=== PATIENT | female | born 1975 | race African-American/Black ===

== ENCOUNTER 2016-06-07 22:33 | Inpatient (IN) | payer OTHER ==
[2016-06-07] MEDS ORDERED: TYLENOL PO ONE (23:07)
[2016-06-07] MEDS ORDERED: TYLENOL ONE (23:08)
[2016-06-07 23:45] LABS: BASO% 0.1 % (0.0-0.8); HEMOGLOBIN 13.6 g/dL (12.0-16.0); IMM GRAN# 0.06 X1000 (0.0-0.04); IMM GRAN% 0.4 % (0.0-0.5); LYMPH# 0.72 X1000 (1.2-3.4); LYMPH% 4.3 % (20.5-51.1); MANUAL DIFF NEEDED? YES; MCV 91.1 FL (81-99); MONO# 0.56 X1000 (0.11-0.59); MONO% 3.3 % (1.7-9.3); MPV 10.9 FL (7.4-10.4); NEUT% 91.9 % (42.2-75.2); PLT 239 X1000 (130-400); RBC 4.39 XMIL (4.2-5.4)
[2016-06-07 23:59] LABS: AGAP 13; ALBUMIN 3.9 g/dL (3.5-5.0); ALKALINE PHOSPHATASE 65 U/L (32-104); BUN 14 mg/dL (8-22); CALCIUM 9.1 mg/dL (8.8-10.2); CHLORIDE 99 mmol/L (98-107); COSMO 268; GOT 12 U/L (10-30); GPT 11 U/L (10-36); POTASSIUM 3.5 mmol/L (3.5-5.1); SODIUM 133 mmol/L (136-145); TCO2 22 mmol/L (25-35); TOTAL PROTEIN 7.1 g/dL (6.3-8.3)
[2016-06-08 00:04] LABS: BANDS 10 % (0-1)
[2016-06-08 00:05] LABS: LYMPHS 5 % (21-51); MONO 1 % (1-9); STOMATOCYTES 1+
--- NOTE | 2016-06-08 00:23 | PROVIDER DOCUMENTATION ---
HPI-Musculoskeletal Pain/Inj - GENERAL Chief Complaint: Extremity Pain Stated Complaint: FEVER,SWOLLEN LEGS Time Seen by Provider: 06/08/16 00:18 Source: patient, family - HX OF PRESENT ILLNESS-MUSKULOSKELTAL Nature of Presenting Problem: 40 Y/O F presents to ED with Extremity pain. Pt states that she's been suffering from edema since she was 13 years old. Pt states the swelling began about 3pm today. Extreme pedal edema in both legs, with inflammation. Quality of Pain: reports: aching, pressure Severity in ED: severe Onset/Duration: this afternoon Timing: still present - LOWER EXTREMITY PAIN/INJURY Lower Extremities Pain: leg: bilateral Context / Method of Injury: reports: other Associated Symptoms: reports: other (swelling) Review of Systems - Adult - REVIEW OF SYSTEMS - ADULT Constitutional: reports: fever. denies: chills Eyes: reports: no symptoms reported Ears, Nose, Mouth & Throat: reports: no symptoms reported Cardiovascular: reports: no symptoms reported Respiratory: reports: no symptoms reported Gastrointestinal: denies: abdominal pain, diarrhea, nausea, vomiting Genitourinary: reports: no symptoms reported Musculoskeletal: reports: joint swelling Integumentary: reports: no symptoms reported Neurological: reports: no symptoms reported Psychiatric: reports: no symptoms reported Endocrine: reports: no symptoms reported Hematologic/Lymphatic: reports: no symptoms reported Allergic/Immunologic: reports: no symptoms reported All Other Systems: Reviewed and Negative Past History - Adult - PAST MEDICAL HISTORY-ADULT Review of Records: reports: Old Records Reviewed, Nursing Assessment Review, Medications Reviewed, Social history reviewed & non-contributory. - PRIOR SURGERIES/PROCEDURES Surgical/Procedure History: reports: hysterectomy - IMMUNIZATION STATUS Childhood Immunizations: See Nurse Assessment Flu Vaccine: See Nurse Assessment - SOCIAL HISTORY Smoking: non-smoker Substance Use: none/never Alcohol Use Frequency: never Living Situation: family Physical Exam-Injury Related - Physical Exam-Injury Related General Appearance: appears well, alert, mild distress Eyes: PERRL/EOMI, pink conjunctivae, fundi clear, no AV nicking Head, Ears, Nose, Mouth & Throat: normocephalic/atraumatic, moist mucous membranes, normal ENT inspection, TMs normal Neck: non-tender, supple, normal inspection Respiratory: chest non-tender, lungs clear, normal breath sounds Cardiovascular: normal peripheral pulses, regular rate, rhythm Abdominal Exam: normal bowel sounds, non tender, soft Lymphatic: no adenopathy Back Exam: normal inspection, no CVA tenderness, no vertebral tenderness Extremity: inflammation, pedal edema, swelling, tenderness Integumentary: normal color, warm/dry 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 Psych/Mental Status: normal mood/affect, normal thought content, normal thought process, oriented x 3 - Glascow Coma Score Best Eye Response ([place]): (4) open spontaneously Best Verbal Response ([place]): (5) oriented Best Motor Response ([place]): (6) obeys commands [place] Total: 15 Progress - PLAN OF CARE/RESULTS Progress/Plan/Lab Results: Laboratory Tests 06/07/16 06/07/16 06/07/16 23:05 23:30 23:30 WBC 16.94 H RBC 4.39 Hgb 13.6 Hct 40.0 MCV 91.1 MCH 31.0 MCHC 34.0 RDW Std Deviation 11.6 Plt Count 239 MPV 10.9 H Immature Gran % (Auto) 0.4 Neut % (Auto) 91.9 H Lymph % (Auto) 4.3 L [place] % (Auto) 3.3 Eos % (Auto) 0.0 Baso % (Auto) 0.1 Immature Gran # (Auto) 0.06 H Neut # (Auto) 15.59 H Lymph # (Auto) 0.72 L [place] # (Auto) 0.56 Eos # (Auto) 0.00 Baso # (Auto) 0.01 Segmented Neutrophils 84 H Band Neutrophils 10 H Lymphocytes 5 L Monocytes 1 Stomatocytes 1+ Sodium 133 L Potassium 3.5 Chloride 99 Carbon Dioxide 22 L Anion Gap 13 BUN 14 Creatinine 0.7 Estimated GFR/1.73 m2 > 60 BUN/Creatinine Ratio 20 Glucose 118 H Calculated Osmolality 268 Calcium 9.1 Total Bilirubin 1.30 H AST 12 ALT 11 Alkaline Phosphatase 65 Total Protein 7.1 Albumin 3.9 Globulin 3.0 Albumin/Globulin Ratio 1.0 Plasma Lactate Influenza A (Rapid) NEGATIVE Influenza B (Rapid) NEGATIVE 06/07/16 23:30 WBC RBC Hgb Hct MCV MCH MCHC RDW Std Deviation Plt Count MPV Immature Gran % (Auto) Neut % (Auto) Lymph % (Auto) [place] % (Auto) Eos % (Auto) Baso % (Auto) Immature Gran # (Auto) Neut # (Auto) Lymph # (Auto) [place] # (Auto) Eos # (Auto) Baso # (Auto) Segmented Neutrophils Band Neutrophils Lymphocytes Monocytes Stomatocytes Sodium Potassium Chloride Carbon Dioxide Anion Gap BUN Creatinine Estimated GFR/1.73 m2 BUN/Creatinine Ratio Glucose Calculated Osmolality Calcium Total Bilirubin AST ALT Alkaline Phosphatase Total Protein Albumin Globulin Albumin/Globulin Ratio Plasma Lactate 1.9 Influenza A (Rapid) Influenza B (Rapid) Orders Category Date Time Status Admit - [facility] Routine AdmDCTranf 06/08/16 00:21 Ordered Activity - Bed Rest with BRP ORDERED Care 06/08/16 00:21 Active Vital Signs Order ARRIVAL TO ROOM Care 06/08/16 00:21 Active Vital Signs Order Q 8-HR .ASSESS Care 06/08/16 00:21 Active Heart Healthy Diet Diet 06/08/16 00:22 Active CBC WITH DIFF [HEME] Stat Lab 06/07/16 23:30 Completed COMPREHENSIVE METABOLIC PANEL [CHEM] Stat Lab 06/07/16 23:30 Completed Flu [INFLUENZA SCREEN PL] Stat Lab 06/07/16 23:05 Completed LACTATE, PLASMA [CHEM] Stat Lab 06/07/16 23:30 Completed 0.9% Sodium Chloride Inj [Ns] 1,000 ml Med 06/08/16 00:30 Ordered IV 100 mls/hr Acetaminophen [Tylenol] Med 06/07/16 23:08 Discontinued 650 mg .ROUTE .STK-MED ONE Acetaminophen [Tylenol] Med 06/07/16 23:07 Discontinued 650 mg PO NOW ONE Acetaminophen [Tylenol] Med 06/08/16 00:21 Active 650 mg PO Q6H PRN PRN Acetaminophen with Codeine [Tylenol with Codeine #3] Med 06/08/16 00:25 Active 1 each PO Q8H PRN PRN Clindamycin 900 mg/Ns 50 ml Med 06/08/16 00:30 Ordered IV Q8H Telemetry [OM.EQ] Routine Oth 06/08/16 00:21 Active Transfer/Admit Order [TRANSFER] Routine Transfer 06/08/16 00:23 Ordered Vital Signs - 24 hr 06/07/16 22:52 Temperature 102.5 F H Pulse Rate 118 H Respiratory 16 Rate Blood Pressure 71/51 O2 Sat by Pulse 99 Oximetry - CONSULTS/PCP/HOSPITALIST Notification #1 *Consult/PCP/Hospitalist*: Dr. Cheatem Time Discussed: 00:35 Reason/Comments: Admittance Consult Disposition: Admit (Admit accepted) Departure - Departure Time of Disposition Order: 00:30 DIAGNOSIS: Erysipelas of lower extremity Disposition: ADMITTED INPATIENT 09 Certified Medical Emergency: Emergent Condition: Stable Additional Instructions: ED Follow Up Instructions: You have been treated by a care provider in the Emergency Department. These instructions are being provided to you so you can have an understanding of how to care for yourself upon discharge. Upon discharge from the Emergency Department, you are responsible for making arrangements for follow-up care by a physician of your choice. Take all prescribed medications as directed. Return to the Emergency Department immediately for any new or worsening symptoms. You may call the Physician Referral phone number at [phone] to obtain a list of Physicians who are taking new patients. Referrals: Luis Atkinson MD [Primary Care Provider] - Attestation - Scribe Verification/Attestation Scribe:: Ana Mcconnell Acting as Scribe for:: Gerson Jacobo Scribe documention review:: This chart was documented by a scribe and accurately reflects the service the provider performed and the decisions made by the provider.
[2016-06-08] MEDS ORDERED: TYLENOL WITH CODEINE #3 PO PRN (00:25)
[2016-06-08] MEDS: NS 1,000 ML IV SCH ×4 (00:30→23:43)
[2016-06-08] MEDS: CLINDAMYCIN 900 MG/NS 50 ML IV SCH ×3 (00:48→16:14)
--- NOTE | 2016-06-08 14:10 | HISTORY AND PHYSICAL ---
PRIMARY CARE PHYSICIAN: Dr. Atkinson. CHIEF COMPLAINT: "My lymphedema is acting up." HISTORY OF PRESENTING ILLNESS: This is a 40-year-old female who presented to [facility] with complaints of bilateral lower extremity edema with 10/10 pain. She has had a history of lymphedema since the age of 13. Her last admission here was in October 2014. Her white blood cell count was noted to be 16.94. She was noted to have bilateral lower extremity edema with right greater than left, pain and warmth to right leg greater than left, so she was admitted for further evaluation and treatment. PAST MEDICAL HISTORY: Lymphedema. PAST SURGICAL HISTORY: Hysterectomy and a toe surgery. FAMILY HISTORY: Mother with borderline diabetes and a sister with breast cancer. SOCIAL HISTORY: She lives with family and denies any tobacco, alcohol, or illicit drug use. ALLERGIES: She has no known drug allergies. HOME MEDICATIONS: She does not take any home medications on a routine basis. LABORATORY DATA: White blood cell count of 16.94, hemoglobin 13.6, hematocrit 40, platelets 239,000. Sodium 133, potassium 3.5, chloride 99, CO2 of 22, BUN of 14, creatinine 0.7, glucose 118. Total bilirubin was 1.30. Plasma lactate of 1.9. Influenza A and B were both negative. REVIEW OF SYSTEMS: She denied any fever, chills, blurred vision, or dizziness. She does complain of a headache yesterday but none today. Denied any chest pain, coughing, shortness of breath, abdominal pain, constipation, diarrhea, burning or hurting with urination. She is positive for lower extremity edema with pain with movement that she rates a 10/10 to both legs. PHYSICAL EXAMINATION: VITAL SIGNS: On arrival, she had a temperature of 102.5 degrees, pulse of 118, respirations 16, blood pressure was 71/51, saturating 99% on room air. Currently, her temperature is 99.8 degrees, pulse 104, respirations 20, blood pressure 119/54, saturating 100% on room air. GENERAL: This is a 40-year-old female who is lying in the bed and answers questions appropriately. HEENT: Normocephalic and atraumatic. Pupils are equal, round, and reactive to light. The extraocular movements are intact. The oropharynx and nares are clear. NECK: Supple. LUNGS: Clear to auscultation bilaterally, with equal lung expansion and chest wall movement. HEART: Regular rate and rhythm. No murmurs, rubs, or gallops. ABDOMEN: Soft, nontender, nondistended. Bowel sounds are present x4 quadrants. EXTREMITIES: Patient is noted to have bilateral lower extremity lymphedema with right greater than left, warmth to touch, and pain with movement to both lower extremities. NEUROLOGICAL: The cranial nerves 2-12 are grossly intact. ASSESSMENT: 1. Erysipelas of bilateral lower extremities. 2. Lymphedema. 3. Leukocytosis. 4. Fever. PLAN: She was admitted to the medical unit at [facility], placed on telemetry, Healthy Heart diet. We placed her on clindamycin 900 mg IV q.8 hours, and normal saline at 100 mL an hour. We will give her Demerol 25 mg IV q.4 hours p.r.n. We will recheck a CBC and BMP in the a.m. Dictated by YUMIKO Amaro for Artis Omalley MD agree with above, significant swelling, erythema, of right LE, also significant onychomycosis, will continue' clindamycin, vancomycin if still febrile, unlikely to be dvt, but will check doppler otherwise agree with above AP[place]OT MTDD
[2016-06-08] MEDS ORDERED: ZOFRAN IV PRN (15:23)
[2016-06-08] MEDS: DEMEROL IV PRN (15:40)
[2016-06-08] MEDS: LOVENOX SUBQ SCH (16:14)
[2016-06-08] MEDS: TYLENOL PO PRN ×2 (16:14→22:15)
[2016-06-09] MEDS: CLINDAMYCIN 900 MG/NS 50 ML IV SCH ×3 (01:36→17:21)
[2016-06-09] MEDS: DEMEROL IV PRN ×3 (01:40→21:17)
[2016-06-09] MEDS ORDERED: VANCOMYCIN IV PER PHARMACY MISC SCH (06:15)
[2016-06-09 06:50] LABS: AGAP 12; BUN 7 mg/dL (8-22); CALCIUM 8.3 mg/dL (8.8-10.2); CHLORIDE 101 mmol/L (98-107); COSMO 262; POTASSIUM 3.4 mmol/L (3.5-5.1); SODIUM 131 mmol/L (136-145); TCO2 18 mmol/L (25-35)
[2016-06-09 06:53] LABS: BASO% 0.1 % (0.0-0.8); HEMATOCRIT 37.5 % (37.0-47.0); HEMOGLOBIN 12.7 g/dL (12.0-16.0); IMM GRAN# 0.04 X1000 (0.0-0.04); IMM GRAN% 0.3 % (0.0-0.5); LYMPH% 6.6 % (20.5-51.1); MANUAL DIFF NEEDED? YES; MCH 30.8 PG (27-31); MCHC 33.9 g/dL (33-37); MCV 90.8 FL (81-99); MONO# 0.74 X1000 (0.11-0.59); MONO% 4.9 % (1.7-9.3); MPV 10.7 FL (7.4-10.4); NEUT% 88.1 % (42.2-75.2); PLT 209 X1000 (130-400); RBC 4.13 XMIL (4.2-5.4)
[2016-06-09 07:44] LABS: BANDS 2 % (0-1); LYMPHS 4 % (21-51); MONO 6 % (1-9)
[2016-06-09] MEDS: NS 1,000 ML IV SCH (09:14)
[2016-06-09] MEDS ORDERED: OFIRMEV 1000 MG/ISOTONIC SOLN 100 ML IV ONE (10:04)
[2016-06-09] MEDS: VANCOMYCIN 2,000 MG in NS 500 ML IV SCH ×2 (11:14→19:18)
[2016-06-09] MEDS: LOVENOX SUBQ SCH (16:09)
[2016-06-09] MEDS ORDERED: LASIX IV ONE (18:58)
[2016-06-09] MEDS ORDERED: KLOR-CON PO ONE (18:59)
--- NOTE | 2016-06-09 19:14 | PROGRESS NOTE ---
DATE: 06/09/2016 SUBJECTIVE: The patient has no focal complaints. OBJECTIVE: Blood pressure 117/57, heart rate 105, respiratory rate 20, temperature 99.6 degrees, 102.9 max temp. Cardiovascular: Regular rate and rhythm. Pulmonary: Bilateral breath sounds. Clear to auscultation. GI: Soft, nontender, nondistended. Bowel sounds are positive. Extremities: No clubbing or cyanosis. Lymphatics: No peripheral edema. Neurological: Nonfocal. Her right lower extremity is swollen. She has got ankle edema, some chronic venous stasis issues but significant lymphedema on the right side. Erythema all the way up to her knee. LABORATORY DATA: White count of 15. Chemistries looked okay. Potassium a little low at 3.4. PROBLEM LIST: Cellulitis of her right leg with persistent fevers. We started vancomycin last night or at least it was ordered but I do not think it was started until this morning and I think she may have missed a dose of her clindamycin last night but she had persistent fevers. I am not sure if it is treatment failure at this point or the vancomycin usage at this point. In any case, I feel clinically her erythema is somewhat improved. We are going to stop her fluids, start Lasix. We ruled out a DVT which is unlikely with a temperature of 102 and we will follow closely.
[2016-06-10] MEDS: DEMEROL IV PRN ×3 (00:38→20:33)
[2016-06-10] MEDS: CLINDAMYCIN 900 MG/NS 50 ML IV SCH ×3 (02:21→17:55)
[2016-06-10 06:10] LABS: HEMATOCRIT 37.1 % (37.0-47.0); HEMOGLOBIN 12.7 g/dL (12.0-16.0); MCH 30.8 PG (27-31); MCHC 34.2 g/dL (33-37); MPV 10.8 FL (7.4-10.4); RBC 4.12 XMIL (4.2-5.4)
[2016-06-10 06:40] LABS: AGAP 11; BUN 7 mg/dL (8-22); CALCIUM 8.6 mg/dL (8.8-10.2); CHLORIDE 105 mmol/L (98-107); COSMO 270; POTASSIUM 3.6 mmol/L (3.5-5.1); SODIUM 136 mmol/L (136-145); TCO2 20 mmol/L (25-35)
--- NOTE | 2016-06-10 07:13 | Extremity Venous Study ---
PROCEDURE NAME: Venous U/S Right Leg - 06/09/2016 VENOUS ULTRASOUND OF THE RIGHT LOWER EXTREMITY: FINDINGS: The deep veins are compressible and demonstrate normal color Doppler flow. There is some soft tissue hyperemia in the calf. The possibility of inflammation is suggested. There are fatty replaced lymph nodes in the right inguinal region. IMPRESSION: No evidence of deep venous thrombosis.
[2016-06-10] MEDS: VANCOMYCIN 2,000 MG in NS 500 ML IV SCH ×2 (08:56→20:34)
--- NOTE | 2016-06-10 10:03 | PROGRESS NOTE ---
DATE: 06/10/2016 SUBJECTIVE: Patient resting quietly in bed. No complaints voiced. OBJECTIVE: Vital Signs: Temperature 98.5, pulse 83, respirations 18, blood pressure 115/62, saturating 98% on room air. General: This is a 40-year-old female who is lying in the bed, and answers questions appropriately. HEENT: Normocephalic and atraumatic. Pupils are equal, round, reactive to light. Extraocular movements are intact. Oropharynx and nares are clear. Neck: Supple. Lungs: Clear to auscultation bilaterally with equal lung expansion and chest wall movement. Heart: With regular rate and rhythm. No murmurs, rubs, or gallops. Abdomen: Soft, nontender, nondistended. Bowel sounds are present x4 quadrants. Extremities: Patient is still noted to have edema and warmth to touch to her right lower extremity. The patient has remained afebrile. Neurological: The cranial nerves 2-12 are grossly intact. LABORATORY DATA: Showed a white blood cell count of 11.62, hemoglobin 12.7, hematocrit 37.1, platelets 222. Sodium 136, potassium 3.6, chloride 105, CO2 of 20, BUN of 7 with a creatinine of 0.6, glucose 108. ASSESSMENT AND PLAN: Cellulitis of right leg with persistent fevers. Her white blood cell count has improved. She has remained afebrile overnight since being started on the correct regimen of her vancomycin and clindamycin. We will continue those at this time and continue to monitor. I think we have her on the right medication regimen now as her white blood cells have improved, and we will continue to follow. Will recheck a CBC, BMP in the a.m. Dictated by YUMIKO Amaro for Artis Omalley MD pt examined, agree with above, clinically improved, will need iv abx for another 1-2 days AP[facility]OT MTDD
[2016-06-10] MEDS: LOVENOX SUBQ SCH (15:59)
[2016-06-11] MEDS: CLINDAMYCIN 900 MG/NS 50 ML IV SCH ×3 (02:13→17:51)
[2016-06-11] MEDS: DEMEROL IV PRN ×2 (02:13→16:33)
[2016-06-11] MEDS: VANCOMYCIN 2,000 MG in NS 500 ML IV SCH ×2 (08:14→19:37)
[2016-06-11] MEDS: LOVENOX SUBQ SCH (16:15)
[2016-06-11] MEDS: LASIX PO SCH (16:28)
--- NOTE | 2016-06-11 16:44 | PROGRESS NOTE ---
DATE: 06/11/2016 SUBJECTIVE: Patient resting quietly, no complaints voiced. OBJECTIVE: Vital signs: Temperature 97.6 degrees, pulse 78, respirations 22, blood pressure 110/66, saturating 98% on room air. General: This is a 40-year-old female who is lying in the bed. HEENT: Normocephalic and atraumatic. Pupils are equal, round, reactive to light. Extraocular movements are intact. The oropharynx and nares are clear. Neck: Supple. Lungs: Clear to auscultation bilaterally with equal lung expansion and chest wall movement. Heart: With regular rate and rhythm. No murmurs, rubs, or gallops. Abdomen: Soft, nontender, nondistended. Bowel sounds are present x4 quadrants. Extremities: Patient is still noted to have edema and warmth to touch to her right lower extremity. She is also noted to have a reddened area to the inner aspect of her right heel. The patient denies any pain to palpation. Area blanches when touched. It almost appears as if it is trying to be a blister but it does not appear to be fluid filled at this time. Neurological: The cranial nerves 2-12 are grossly intact. LABORATORY DATA: No new labs today. ASSESSMENT: 1. Cellulitis of the right leg. 2. Fevers resolved. PLAN: We will continue her current IV antibiotic regimen of clindamycin and vancomycin. She is currently on day 3 of both. She has remained afebrile for greater than 24 hours at this point. Will recheck a CBC and BMP in the a.m.. Dictated by YUMIKO Amaro for Artsi Omalley MD clinically improved, agree with above, plan to dc in next 1-2 days, will consider orbctive as outpt infusion APENOT MTDD
[2016-06-12] MEDS: CLINDAMYCIN 900 MG/NS 50 ML IV SCH ×3 (01:06→18:25)
[2016-06-12] MEDS: DEMEROL IV PRN ×2 (01:08→16:20)
[2016-06-12 07:19] LABS: MANUAL DIFF NEEDED? NO
[2016-06-12 07:24] LABS: BASO% 0.4 % (0.0-0.8); EOS# 0.24 X1000 (0.0-0.7); EOS% 4.3 % (0.0-10.0); HEMATOCRIT 39.3 % (37.0-47.0); HEMOGLOBIN 13.3 g/dL (12.0-16.0); IMM GRAN# 0.02 X1000 (0.0-0.04); IMM GRAN% 0.4 % (0.0-0.5); LYMPH# 1.74 X1000 (1.2-3.4); LYMPH% 31.2 % (20.5-51.1); MCH 30.4 PG (27-31); MCHC 33.8 g/dL (33-37); MCV 89.9 FL (81-99); MONO# 0.57 X1000 (0.11-0.59); MONO% 10.2 % (1.7-9.3); MPV 9.8 FL (7.4-10.4); NEUT% 53.5 % (42.2-75.2); PLT 324 X1000 (130-400); RBC 4.37 XMIL (4.2-5.4)
[2016-06-12 07:45] LABS: AGAP 11; BUN 7 mg/dL (8-22); CALCIUM 8.8 mg/dL (8.8-10.2); CHLORIDE 102 mmol/L (98-107); COSMO 273; POTASSIUM 3.3 mmol/L (3.5-5.1); SODIUM 137 mmol/L (136-145); TCO2 24 mmol/L (25-35)
[2016-06-12] MEDS: VANCOMYCIN 2,000 MG in NS 500 ML IV SCH ×2 (08:16→19:41)
[2016-06-12] MEDS: LASIX PO SCH (08:16)
[2016-06-12] MEDS ORDERED: KLOR-CON PO ONE (10:54)
--- NOTE | 2016-06-12 12:49 | PROGRESS NOTE ---
DATE: 06/12/2016 SUBJECTIVE: Patient resting quietly. States less pain to her right lower extremity. States she has been able to walk some small distances and put pressure on her legs more than she has been able to do in the past few days. OBJECTIVE: Vital Signs: Temperature of 97.9 degree,s pulse 77, respirations 20 , blood pressure 105/56, saturating 98% on room air. General: This is a 40-year-old female lying in the bed. Answers questions appropriately. HEENT: Normocephalic and atraumatic. Pupils are equal, round, and reactive to light. Extraocular movements are intact. Oropharynx and nares are clear. Neck: Supple. Lungs: Clear to auscultation bilaterally with equal lung expansion and chest wall movement. Heart: Regular rate and rhythm. No murmurs, rubs, or gallops. Abdomen: Soft, nontender, and nondistended. Bowel sounds are present x4 quadrants. Extremities: No clubbing or cyanosis. Patient is still noted on her right lower extremity to have some mild warmth. It is decreased from yesterday and a decrease in the edema. Neurological: The cranial nerves 2-12 are grossly intact. LABORATORY DATA: White blood cell count of 5.57, hemoglobin 13.3, hematocrit 39.3, platelets 324,000. Sodium 137, potassium 3.3, chloride 102, CO2 of 24, BUN of 7 with a creatinine of 0.6, and glucose 115. ASSESSMENT AND PLAN: 1. Cellulitis of the right leg. We will continue her IV antibiotics of clindamycin and vancomycin, and she is currently on day 4 for both of those. Her white blood cell count is back to within normal limits. She is remaining afebrile. 2. Hypokalemia. We will supplement and recheck a BMP in the a.m. DISPOSITION: Likely home in the next 1-2 days. Dictated by YUMIKO Amaro for Artis Omalley MD pt examined, will plan for dc tomorrow and outpt tx with orbactiv or [place]
[2016-06-12] MEDS: LOVENOX SUBQ SCH (18:26)
[2016-06-12] MEDS ORDERED: NS 500 ML IV SCH (19:15)
[2016-06-13] MEDS: DEMEROL IV PRN (00:06)
[2016-06-13] MEDS: CLINDAMYCIN 900 MG/NS 50 ML IV SCH ×2 (02:21→10:19)
[2016-06-13 06:43] LABS: MANUAL DIFF NEEDED? NO
[2016-06-13 06:47] LABS: BASO% 0.3 % (0.0-0.8); EOS# 0.33 X1000 (0.0-0.7); EOS% 5.2 % (0.0-10.0); HEMATOCRIT 40.3 % (37.0-47.0); HEMOGLOBIN 13.4 g/dL (12.0-16.0); IMM GRAN# 0.02 X1000 (0.0-0.04); IMM GRAN% 0.3 % (0.0-0.5); LYMPH# 2.05 X1000 (1.2-3.4); LYMPH% 32.1 % (20.5-51.1); MCH 30.1 PG (27-31); MCHC 33.3 g/dL (33-37); MCV 90.6 FL (81-99); MONO# 0.56 X1000 (0.11-0.59); MONO% 8.8 % (1.7-9.3); MPV 9.8 FL (7.4-10.4); NEUT% 53.3 % (42.2-75.2); PLT 348 X1000 (130-400); RBC 4.45 XMIL (4.2-5.4)
[2016-06-13 07:18] LABS: AGAP 11; BUN 7 mg/dL (8-22); CALCIUM 8.9 mg/dL (8.8-10.2); CHLORIDE 104 mmol/L (98-107); COSMO 276; SODIUM 139 mmol/L (136-145); TCO2 24 mmol/L (25-35)
[2016-06-13] MEDS: LASIX PO SCH ×2 (07:44→09:32)
[2016-06-13] MEDS: VANCOMYCIN 2,000 MG in NS 500 ML IV SCH (07:45)
[2016-06-13] MEDS ORDERED: CLEOCIN PO ONE (12:39)
[2016-06-13 15:37] VITALS: BP 109/61
--- NOTE | 2016-06-13 20:50 | DISCHARGE SUMMARY ---
ADMISSION DATE: 06/08/2016 DISCHARGE DATE: 06/13/2016 DISCHARGE DIAGNOSES: 1. Right lower extremity cellulitis, presumably associated with Staphylococcus. 2. Onychomycosis. 3. Chronic lymphedema of both lower extremities. ADMISSION DIAGNOSIS: 1. Right lower extremity cellulitis, presumably associated with Staphylococcus. 2. Onychomycosis. 3. Chronic lymphedema of both lower extremities. HOSPITAL COURSE: Briefly, this is a very pleasant 40-year-old female with significant lymphedema. She is not an obese patient really at all, yet she has significant chronic lymphedema of both legs. She came in with a red hot swollen leg on the right side pretty much up to her knee. White count of 16.9, was found to have clinically cellulitis erysipelas. She was initially placed on clindamycin at very high dose. She had persistent fevers though the first 24 hours with fevers up to 102.5, 102.7. However, she missed at least 2 doses of antibiotics overnight which may have had something to do with her persistent fevers. Vancomycin was added additionally although I am not quite sure she really had treatment failure on clindamycin versus just not getting all her doses. We put her on some oral Lasix, a venous Doppler was ordered that was negative. She had slow clinical improvement. By the 2nd, she had defervesced and her white count steadily improved, 5.5, was normal on the 4th. DISCHARGE CONDITION: Was stable. On the she is stable currently and she was felt stable for discharge on the . DISCHARGE CONDITION: Stable. DISCHARGE MEDICATIONS: Clindamycin 300 t.i.d., Lactinex 1 p.o. b.i.d. DISCHARGE INSTRUCTIONS: We will attempt to set up outpatient Orbactiv or [place]. She does have Medicare/Medicaid, but apparently she is going into some sort of contestation with denied disability, so she is afraid it may not be covered because she is having issues with her insurance right now, which may be an issue. But if we can get it covered, we will set her up for outpatient. Other than that, we will do clindamycin 300 t.i.d. for another 7 days and Lactinex just to prevent any antibiotic-associated diarrhea. DISCHARGE CONDITION: Stable. TIME SPENT: 32 minute discharge.
== END 2016-06-13 18:52 | disposition home or self-care (01) | DRG 603 ==
LOC: P.ED 22:33 → P.MEDSURG 06-08 00:38
PROVIDERS: ATTEND Internal Medicine
DX: L03.115 Cellulitis of right lower limb (principal); B95.8 Unspecified staphylococcus as the cause of diseases classified elsewhere; B35.1 Tinea unguium; I89.0 Lymphedema, not elsewhere classified; I87.8 Other specified disorders of veins; E87.6 Hypokalemia; Z80.3 Family history of malignant neoplasm of breast
CPT/HCPCS: 36415; 80048; 80053; 80202; 83605; 85025; 85027; 87040; 87804; 93971; 96374; J0131; J1650; J1940; J2175; J3370; J7030; J7040; S0077

== ENCOUNTER 2016-10-17 17:25 | Inpatient (IN) ==
[2016-10-17] MEDS ORDERED: MOTRIN PO ONE (17:28)
[2016-10-17 17:55] LABS: MANUAL DIFF NEEDED? NO
[2016-10-17] MEDS ORDERED: MOTRIN LIQUID ONE (17:59)
[2016-10-17 18:15] LABS: BASO% 0.1 % (0.0-0.8); HEMATOCRIT 44.8 % (37.0-47.0); HEMOGLOBIN 15.3 g/dL (12.0-16.0); IMM GRAN# 0.04 X1000 (0.0-0.04); IMM GRAN% 0.4 % (0.0-0.5); LYMPH# 0.55 X1000 (1.2-3.4); LYMPH% 4.8 % (20.5-51.1); MCH 30.6 PG (27-31); MCHC 34.2 g/dL (33-37); MCV 89.6 FL (81-99); MONO# 0.24 X1000 (0.11-0.59); MONO% 2.1 % (1.7-9.3); MPV 11.2 FL (7.4-10.4); NEUT% 92.6 % (42.2-75.2); PLT 229 X1000 (130-400)
[2016-10-17] MEDS ORDERED: VANCOMYCIN 1 GM/NS 1 GM/250 ML IVPB IV ONE ×2 (18:21→21:00)
[2016-10-17] MEDS ORDERED: MORPHINE IV ONE (18:21)
[2016-10-17] MEDS ORDERED: ZOSYN 3.375 GM/NS 3.375 GM/50 ML IVPB IV ONE (18:25)
[2016-10-17] MEDS ORDERED: ZOFRAN IV ONE (18:25)
[2016-10-17] MEDS ORDERED: ZOFRAN ONE (18:25)
[2016-10-17] MEDS ORDERED: VANCOMYCIN IV PER PHARMACY MISC SCH (18:30)
[2016-10-17 18:37] LABS: AGAP 15; ALBUMIN 4.4 g/dL (3.5-5.0); ALKALINE PHOSPHATASE 57 U/L (32-104); BUN 9 mg/dL (8-22); CALCIUM 9.3 mg/dL (8.8-10.2); CHLORIDE 100 mmol/L (98-107); COSMO 266; GOT 13 U/L (10-30); GPT 13 U/L (10-36); POTASSIUM 3.5 mmol/L (3.5-5.1); SODIUM 133 mmol/L (136-145); TCO2 18 mmol/L (25-35)
--- NOTE | 2016-10-17 18:44 | PROVIDER DOCUMENTATION ---
This chart was entered by Narcisa Olivarez Scribe, acting as scribe for Josiah Quiñonez MD. HPI-General Adult - General Chief Complaint: Edema Stated Complaint: edema Time Seen by Provider: 10/17/16 18:17 Source: patient Allergies/Adverse Reactions: Patient Allergies Allergy/AdvReac Type Severity Reaction Status Date / Time No Known Allergies Allergy Verified 06/07/16 23:00 Home Medications: Home Medication List Medication Instructions Recorded Confirmed Last Taken Type Acidophilus/Bulgaricus [Lactinex] 1 each PO BID #14 packet 06/13/16 Unknown Rx Cefprozil 500 mg PO Q12H #14 tablet 06/13/16 Unknown Rx Terbinafine HCl 1% Cream [Lamisil 1 applicatn TOP DAILY #1 tube 06/13/16 Unknown Rx 1% Cream] - History of Present Illness -Gen Adult Nature of Presenting Problems: 41 Y/O F presents to ER with the complain of Edema in bilat legs leg. pt states that she has erythema in R leg and today her R leg started to turning red, swollen and warm. pt states that i5t hurts to walk and she feels pain in the R leg. pt denies any injuries. Location of Pain/Injury: reports: lower extremity (R leg erythema) Onset/Duration: reports: this morning Timing: reports: still present Associated Symptoms: reports: fever/chills Review of Systems - Adult - REVIEW OF SYSTEMS - ADULT Constitutional: reports: no symptoms reported Eyes: reports: no symptoms reported Ears, Nose, Mouth & Throat: reports: no symptoms reported Cardiovascular: reports: no symptoms reported Respiratory: reports: no symptoms reported Gastrointestinal: reports: no symptoms reported Genitourinary: reports: no symptoms reported Musculoskeletal: reports: other (R leg edema). denies: back pain Integumentary: reports: nail changes, other (R leg red and warm) Neurological: reports: no symptoms reported Psychiatric: reports: no symptoms reported Endocrine: reports: no symptoms reported Hematologic/Lymphatic: reports: no symptoms reported Allergic/Immunologic: reports: no symptoms reported All Other Systems: Reviewed and Negative Past History - Adult - PAST MEDICAL HISTORY-ADULT Review of Records: reports: Old Records Reviewed, Nursing Assessment Review - PRIOR SURGERIES/PROCEDURES Surgical/Procedure History: reports: hysterectomy - IMMUNIZATION STATUS Childhood Immunizations: See Nurse Assessment Flu Vaccine: See Nurse Assessment Physical Exam-General - PHYSICAL EXAM-ADULT Initial Vital Signs Reviewed: Yes - CONSTITUTIONAL General Appearance: appears well, alert - EYES Eyes: PERRL/EOMI, pink conjunctivae - NECK Neck: non-tender, full range of motion, supple - RESPIRATORY Respiratory: normal breath sounds, no pleuratic chest pain, no respiratory distress - CARDIOVASCULAR Cardiovascular: normal peripheral pulses, regular rate, rhythm - MUSCULOSKELETAL Back Exam: no CVA tenderness, no vertebral tenderness Extremity: erythema (R leg), pedal edema (Bilat legs), swelling (R leg), tenderness (R leg) - SKIN Integumentary: swelling (R leg), other (R leg redness) - NEUROLOGIC Neurologic: grossly normal, no motor/sensory deficits - PSYCHIATRIC Psych/Mental Status: normal mood/affect, normal thought content, normal thought process, oriented x 3 Progress - PLAN OF CARE/RESULTS Progress/Plan/Lab Results: Vital Signs - 8 hr 10/17/16 17:26 Temperature 102.8 F H Pulse Rate 139 H Respiratory Rate 20 Blood Pressure 106/71 O2 Sat by Pulse Oximetry 97 Laboratory Results - last 24 hr 10/17/16 17:47 WBC 11.35 H RBC 5.00 Hgb 15.3 Hct 44.8 MCV 89.6 MCH 30.6 MCHC 34.2 RDW Std Deviation 12.2 Plt Count 229 MPV 11.2 H Immature Gran % (Auto) 0.4 Neut % (Auto) 92.6 H Lymph % (Auto) 4.8 L [place] % (Auto) 2.1 Eos % (Auto) 0.0 Baso % (Auto) 0.1 Immature Gran # (Auto) 0.04 Neut # (Auto) 10.51 H Lymph # (Auto) 0.55 L [place] # (Auto) 0.24 Eos # (Auto) 0.00 Baso # (Auto) 0.01 Orders Category Date Time Status BLOOD CULTURE [BLDCUL] Stat Lab 10/17/16 17:28 Ordered CBC WITH DIFF [HEME] Stat Lab 10/17/16 17:47 Completed COMPREHENSIVE METABOLIC PANEL [CHEM] Stat Lab 10/17/16 17:47 Received LACTATE, PLASMA [CHEM] Stat Lab 10/17/16 17:47 Received Ibuprofen [Motrin Liquid] Med 10/17/16 17:59 Discontinued 600 mg .ROUTE .STK-MED ONE Ibuprofen [Motrin] Med 10/17/16 17:28 Discontinued 600 mg PO NOW ONE Result Diagrams: 10/17/16 17:47 10/17/16 17:47 - CONSULTS/PCP/HOSPITALIST Notification #1 *Consult/PCP/Hospitalist*: Dr. No Time Discussed: 18:23 Reason/Comments: discussed about patient Departure - Departure Date of Disposition Decision: 10/17/16 Time of Disposition Decision: 18:43 DIAGNOSIS: Cellulitis of right leg Disposition: ADMITTED INPATIENT 09 Certified Medical Emergency: Emergent Condition: Fair Referrals and Follow-Ups: Luis Atkinson MD [Primary Care Provider] - - Critical Care Note This patient required my direct & personal management of CC.: No This chart was documented by the indicated scribe, (Narcisa Olivarez Scribe) and accurately reflects the services I performed and decisions made by me, Josiah Quiñonez MD, as attested by the provider's signature.
[2016-10-17] MEDS: LR 1,000 ML IV PRN ×2 (19:27→21:21)
[2016-10-17] MEDS: LOVENOX SUBQ SCH (21:22)
[2016-10-17] MEDS: TYLENOL PO PRN (21:38)
[2016-10-17] MEDS: MORPHINE IV PRN (21:38)
[2016-10-18] MEDS: ZOSYN 3.375 GM/NS 3.375 GM/50 ML IVPB IV SCH ×4 (00:27→18:10)
[2016-10-18] MEDS: MORPHINE IV PRN ×2 (04:08→09:31)
[2016-10-18 07:38] LABS: MANUAL DIFF NEEDED? NO
[2016-10-18 07:44] LABS: BASO% 0.1 % (0.0-0.8); EOS# 0.01 X1000 (0.0-0.7); EOS% 0.1 % (0.0-10.0); HEMATOCRIT 41.4 % (37.0-47.0); HEMOGLOBIN 13.9 g/dL (12.0-16.0); IMM GRAN# 0.05 X1000 (0.0-0.04); IMM GRAN% 0.4 % (0.0-0.5); LYMPH# 0.62 X1000 (1.2-3.4); LYMPH% 5.5 % (20.5-51.1); MCH 30.5 PG (27-31); MCHC 33.6 g/dL (33-37); MCV 90.8 FL (81-99); MONO# 0.43 X1000 (0.11-0.59); MONO% 3.8 % (1.7-9.3); MPV 11.1 FL (7.4-10.4); NEUT% 90.1 % (42.2-75.2); PLT 176 X1000 (130-400); RBC 4.56 XMIL (4.2-5.4)
[2016-10-18 08:05] LABS: AGAP 10; ALBUMIN 3.5 g/dL (3.5-5.0); ALKALINE PHOSPHATASE 57 U/L (32-104); BUN 8 mg/dL (8-22); CALCIUM 8.6 mg/dL (8.8-10.2); CHLORIDE 103 mmol/L (98-107); COSMO 268; GOT 38 U/L (10-30); GPT 31 U/L (10-36); POTASSIUM 3.7 mmol/L (3.5-5.1); SODIUM 135 mmol/L (136-145); TCO2 22 mmol/L (25-35); TOTAL PROTEIN 6.7 g/dL (6.3-8.3)
--- NOTE | 2016-10-18 08:26 | HISTORY AND PHYSICAL ---
CHIEF COMPLAINT: "My lymphedema is acting up and I am tired of it." HISTORY OF PRESENT ILLNESS: This is a 41-year-old female with a history of chronic lymphedema who presented to the emergency room complaining of bilateral lower extremity edema with right greater than left. She states that the left is normal, right is somewhat larger than normal. Edema is noted up to her knees. She does have redness and warmth from just below her right knee down to her foot. She is tender to touch. She states that this is chronic and that she comes to the hospital when she gets tired of dealing with this. She did have subjective fevers at home. She denied any nausea, vomiting, any calf tenderness, any cough , shortness of breath, PND, orthopnea and any drainage from bilateral lower extremities. PAST MEDICAL HISTORY: Lymphedema. PAST SURGICAL HISTORY: Partial hysterectomy. FAMILY HISTORY: Mother has borderline diabetes. Sister has breast cancer. SOCIAL HISTORY: She lives with family members. Denies alcohol, tobacco or illicit drug use. ALLERGIES: No known drug allergies. HOME MEDICATIONS: None. REVIEW OF SYSTEMS: 14 point review of systems is discussed with patient with pertinent positives listed in the HPI All others are negative. PHYSICAL EXAM: HEENT: PERRL, EOM INTACT, sclera nonicteric, mucous membranes moist CARDIOVASCULAR: Regular rate and rhythm, S1 and S2 appreciated PULMONARY: Breath sounds clear, chest rises and falls symmetrically GASTROINTESTINAL: Abdomen soft, nontender, nondistended, bowel sounds positive in all 4 quadrants. EXTREMITIES: No clubbing cyanosis, Edema 4+ RLE from just above the knee to toes Area red, warm to touch 2+ LLE Pulses palpable x4 NEUROLOGIC: Alert and oriented X3 LABORATORY DATA: WBC is 11.3 with hemoglobin 15.3, hematocrit 44.8, platelets of 229,000. Sodium is 133, potassium 3.5, BUN 9, creatinine 0.7 with a glucose of 107. Her total bilirubin is 1.6 with AST 13 and ALT 13 and alkaline phosphatase 57. ASSESSMENT: This is a 41-year-old female, who is lying in the bed, in no distress: 1. Cellulitis, right lower extremity. We will continue with vancomycin and Zosyn for antibiotic coverage with pain medication. It looks like a culture was obtained; once returned, antibiotics may be changed as appropriate. 2. Chronic lymphedema since the age of 13. 3. Leukocytosis. 4. Fever. PLAN: Further treatments pending hospital course. Dictated by YUMIKO Stafford for Donell Samson MD cc: YUMIKO Stafford MD [facility]
[2016-10-18] MEDS: LASIX IV SCH ×2 (09:32→20:15)
[2016-10-18] MEDS: VANCOMYCIN 1,700 MG in NS 250 ML IV SCH ×2 (09:33→20:15)
[2016-10-18] MEDS: LR 1,000 ML IV PRN (12:08)
[2016-10-18] MEDS: NORCO-7.5 PO PRN ×2 (12:53→22:11)
[2016-10-18] MEDS: TYLENOL PO PRN ×2 (15:01→22:10)
[2016-10-18] MEDS: LOVENOX SUBQ SCH (20:15)
[2016-10-19] MEDS: ZOSYN 3.375 GM/NS 3.375 GM/50 ML IVPB IV SCH ×4 (00:18→18:33)
[2016-10-19] MEDS: LR 1,000 ML IV PRN ×2 (00:18→13:21)
--- NOTE | 2016-10-19 07:43 | Diag Imaging Result Doc PS360 ---
ANKLE COMPLETE RIGHT, FOOT COMPLETE RIGHT - 10/19/2016 INDICATION: cellulitis, ? osteomyelitis TECHNIQUE: COMPARISON: Right ankle three views, right foot three views FINDINGS: Right ankle: There is severe pedal edema. No fracture or dislocation. No bony erosions. Right foot: There is severe pedal edema. Mild degenerative changes at the base of the great toe. No fracture or dislocation. IMPRESSION: Pedal edema. No acute bony disease. Electronically signed by Dusty Dunn 10/19/2016 7:41 AM
[2016-10-19 08:16] LABS: HEMATOCRIT 42.7 % (37.0-47.0); HEMOGLOBIN 14.7 g/dL (12.0-16.0); MCH 30.8 PG (27-31); MCHC 34.4 g/dL (33-37); MCV 89.3 FL (81-99); MPV 11.4 FL (7.4-10.4); RBC 4.78 XMIL (4.2-5.4)
[2016-10-19] MEDS ORDERED: ZOFRAN IV PRN (08:28)
[2016-10-19 08:40] LABS: ALBUMIN 3.6 g/dL (3.5-5.0); CALCIUM 8.7 mg/dL (8.8-10.2); TOTAL BILIRUBIN 1.3 mg/dL (0.20-1.00); TOTAL PROTEIN 7.6 g/dL (6.3-8.3)
[2016-10-19] MEDS: DILAUDID IV PRN ×4 (09:28→22:32)
[2016-10-19] MEDS: LASIX IV SCH (09:28)
[2016-10-19] MEDS: TYLENOL PO PRN ×2 (09:29→22:29)
[2016-10-19] MEDS: ZOFRAN IV PRN ×3 (09:29→18:34)
[2016-10-19] MEDS: VANCOMYCIN 1,700 MG in NS 250 ML IV SCH ×2 (09:55→20:03)
--- NOTE | 2016-10-19 15:25 | Diag Imaging Result Doc PS360 ---
EXTREM LOWER W/O CONTRAST - 10/19/2016 INDICATION: edema, pain, cellulitis TECHNIQUE: A CT dose reduction protocol was used. COMPARISON: X-rays from earlier today FINDINGS: There is diffuse skin thickening and extensive subcutaneous tissue in relation with edema extending from the knee to the foot. This is circumferential throughout the lower leg, primarily medial and lateral at the ankle, and dorsal at the foot. No focal or drainable fluid collections. No bony changes. No foreign bodies. No soft tissue gas. The major muscle groups and tendons all appear normal. IMPRESSION: Extensive soft tissue edema about the lower leg, ankle and foot. No complicating features. Electronically signed by Dusty Dunn 10/19/2016 3:22 PM
--- NOTE | 2016-10-19 18:39 | PROGRESS NOTE ---
DATE: 10/19/2016 The patient states that she does feel some better today. She has had no nausea, vomiting. She has a little less pain to her foot. OBJECTIVE: Vital Signs: Blood pressure is 119/62 with a heart rate of 108, respirations are 18, temperature is 101.2 degrees with a room air saturation 100%. Cardiovascular: Regular rate and rhythm. S1 and S2 appreciated. Pulmonary: Breath sounds are clear with no increased work of breathing noted. Gastrointestinal: Abdomen is soft, nontender, nondistended with bowel sounds in all 4 quadrants. Extremities: No clubbing, cyanosis, or edema to upper extremities. Lower extremities, she does have bilateral generalized edema with right greater than left. She continues with redness and warmth to her right foot but is improving. LABS: WBC is 13.8 with hemoglobin 14.7, hematocrit 42.7 and platelets of 205,000. Sodium is 133, potassium 3, BUN 9, creatinine 1.2 with a glucose of 115. ASSESSMENT AND PLAN: 1. Cellulitis, right lower extremity. 2. Chronic lymphedema bilateral since age 13. 3. Leukocytosis. 4. Fever. PLAN: Will contact Dr. Allison regarding antibiotic coverage and his recommendations. In the meantime we will continue with our current treatment. Dictated by YUMIKO Stafford for Donell Samson MD cc: YUMIKO Stafford MD
[2016-10-19] MEDS: LOVENOX SUBQ SCH (20:03)
[2016-10-20] MEDS: ZOSYN 3.375 GM/NS 3.375 GM/50 ML IVPB IV SCH ×4 (00:15→21:00)
[2016-10-20] MEDS: LR 1,000 ML IV PRN ×2 (02:41→14:44)
[2016-10-20] MEDS: DILAUDID IV PRN ×5 (02:44→20:58)
[2016-10-20] MEDS: ZOFRAN IV PRN ×4 (07:49→20:57)
[2016-10-20 07:56] LABS: HEMATOCRIT 41.4 % (37.0-47.0); HEMOGLOBIN 14.1 g/dL (12.0-16.0); MCHC 34.1 g/dL (33-37); MPV 10.8 FL (7.4-10.4); RBC 4.55 XMIL (4.2-5.4)
[2016-10-20 08:11] LABS: ALBUMIN 2.9 g/dL (3.5-5.0); CALCIUM 8.3 mg/dL (8.8-10.2); POTASSIUM 3.2 mmol/L (3.5-5.1); TOTAL BILIRUBIN 0.7 mg/dL (0.20-1.00); TOTAL PROTEIN 6.9 g/dL (6.3-8.3)
--- NOTE | 2016-10-20 09:28 | PROGRESS NOTE ---
DATE: 10/20/2016 SUBJECTIVE: Patient notes that she is starting to feel a little bit better. She is still having pain and swelling in her right lower extremity. Still had fever yesterday. PHYSICAL EXAMINATION: Vital Signs: Temperature 98 current , T-max 102 degrees at 10 p.m. last night. Pulse 88-109, respiratory rate 16, BP 122/59, saturation 100% on room air. General: Patient is awake, alert, pleasant to talk with. Lying in bed, comfortable. HEENT: Normocephalic, atraumatic. CLARE. Neck: Supple. CV: Regular rate. Chest: Clear. Nonlabored. No wheezing. Abdomen: Soft. Extremities: Moves all extremities. Neurologic: no focal changes. Skin: She is noted to have mild erythema of the right lower extremity but marked edema on the right compared to the left. ASSESSMENT: 1. Cellulitis of the right lower extremity. We will check an ultrasound just to rule out deep venous thrombosis, although this certainly appears to be more lymphedema. 2. Chronic lymphedema. 3. Leukocytosis. 4. Fever. PLAN: We will continue patient on her current antibiotics. She certainly appears to be improving clinically. She is having fever, although her fever spikes are lower and continue to decline. cc: Donell Samson MD
[2016-10-20] MEDS: VANCOMYCIN 1,700 MG in NS 250 ML IV SCH ×2 (11:00→22:01)
--- NOTE | 2016-10-20 15:37 | Extremity Venous Study ---
EXAM: Venous U/S Bilateral Legs HISTORY: EDEMA, CELLULITIS TECHNIQUE: COMPARISON: 06/09/2016 FINDINGS: Right: Normal flow and compressibility of the veins of the right lower extremity. No thrombus. Normal augmentation. There are lymph nodes noted in the right inguinal region. Left: There is normal flow and compressibility of the veins of the left lower extremity. No thrombus. Normal augmentation. Prominent subcutaneous fat or edema bilaterally. IMPRESSION: No evidence of deep venous thrombosis within either lower extremity. Electronically signed by Guero Dickey 10/20/2016 3:35 PM
[2016-10-20] MEDS: LOVENOX SUBQ SCH (20:57)
[2016-10-21] MEDS: ZOSYN 3.375 GM/NS 3.375 GM/50 ML IVPB IV SCH ×4 (03:01→21:20)
[2016-10-21] MEDS: LR 1,000 ML IV PRN (03:06)
[2016-10-21] MEDS: DILAUDID IV PRN ×5 (03:09→21:27)
[2016-10-21] MEDS: ZOFRAN IV PRN ×4 (03:10→21:26)
[2016-10-21] MEDS: NS 1,000 ML IV SCH ×2 (08:44→21:20)
--- NOTE | 2016-10-21 08:49 | PROGRESS NOTE ---
DATE: 10/21/2016 SUBJECTIVE: Patient notes that she started feeling a little bit better. Still having pain in her right lower extremity. Still having swelling but that is not unusual. Still having low-grade fevers. Denies any coughing or congestion. Denies any dysuria or frequency. PHYSICAL EXAMINATION: Vital Signs: Temperature 98, T-max 99.9 degrees on 10/20/2016 at 2 p.m. Although patient states she had a fever overnight, this was not documented. HEENT: Normocephalic and atraumatic. Neck: Supple. CV: Regular rate. Chest: Relatively clear. Abdomen: Soft. Extremities: Moves all extremities. Neurologic: No changes. Skin: She is noted to have less erythema of her right lower extremity. Still having marked edema but I believe this is chronic in nature. DIAGNOSTIC DATA: WBCs 12. Potassium 3.2. ASSESSMENT: 1. Hypokalemia. 2. Acute renal failure, stable. 3. Hyperbilirubinemia, resolved. 4. Mild protein calorie malnutrition. 5. Leukocytosis. 6. Chronic in lymphedema of her right lower extremity. PLAN: We will continue patient on IV fluids, although we will decrease the rate to 75. We will continue vancomycin and Zosyn. So far, blood cultures have been negative. Her fever has actually started to trend down. Hopefully, over the next few days, she will improve and can be transitioned over to oral antibiotics and discharged home. cc: Donell Samson MD
[2016-10-21] MEDS: VANCOMYCIN 1,700 MG in NS 250 ML IV SCH (09:46)
[2016-10-21] MEDS: LOVENOX SUBQ SCH (21:20)
[2016-10-22] MEDS: ZOFRAN IV PRN ×2 (01:29→11:05)
[2016-10-22] MEDS: DILAUDID IV PRN ×4 (01:30→15:54)
[2016-10-22] MEDS: ZOSYN 3.375 GM/NS 3.375 GM/50 ML IVPB IV SCH ×3 (02:42→15:54)
[2016-10-22 06:47] LABS: HEMOGLOBIN 12.1 g/dL (12.0-16.0); MCH 31.2 PG (27-31); MCHC 34.6 g/dL (33-37); MCV 90.2 FL (81-99); MPV 9.7 FL (7.4-10.4); RBC 3.88 XMIL (4.2-5.4)
[2016-10-22 07:11] LABS: ALBUMIN 2.6 g/dL (3.5-5.0); CALCIUM 8.1 mg/dL (8.8-10.2); MAGNESIUM 2.1 mg/dL (1.5-2.7); POTASSIUM 2.8 mmol/L (3.5-5.1); TOTAL BILIRUBIN 0.4 mg/dL (0.20-1.00); TOTAL PROTEIN 6.2 g/dL (6.3-8.3)
[2016-10-22] MEDS ORDERED: VANCOMYCIN 1,800 MG in NS 250 ML IV SCH (09:00)
[2016-10-22] MEDS: KLOR-CON PO SCH ×2 (09:44→21:26)
[2016-10-22] MEDS: NS 1,000 ML IV SCH ×2 (09:44→11:03)
[2016-10-22] MEDS: LOVENOX SUBQ SCH (21:27)
[2016-10-23] MEDS: DILAUDID IV PRN ×3 (00:16→09:33)
[2016-10-23] MEDS: ZOSYN 3.375 GM/NS 3.375 GM/50 ML IVPB IV SCH ×3 (00:20→10:47)
[2016-10-23] MEDS: KLOR-CON PO SCH ×3 (01:00→20:25)
[2016-10-23] MEDS: NS 1,000 ML IV SCH (04:22)
[2016-10-23 06:14] LABS: HEMATOCRIT 35.3 % (37.0-47.0); HEMOGLOBIN 11.9 g/dL (12.0-16.0); MCH 30.6 PG (27-31); MCHC 33.7 g/dL (33-37); MCV 90.7 FL (81-99); MPV 10.1 FL (7.4-10.4); RBC 3.89 XMIL (4.2-5.4)
[2016-10-23 06:39] LABS: ALBUMIN 2.7 g/dL (3.5-5.0); CALCIUM 8.2 mg/dL (8.8-10.2); MAGNESIUM 2.1 mg/dL (1.5-2.7); TOTAL BILIRUBIN 0.5 mg/dL (0.20-1.00); TOTAL PROTEIN 6.2 g/dL (6.3-8.3)
[2016-10-23] MEDS ORDERED: G.I. COCKTAIL PO PRN (11:24)
--- NOTE | 2016-10-23 12:15 | PROGRESS NOTE ---
DATE: 10/23/2016 SUBJECTIVE: Patient complains of persistent nausea. States that she is spitting up all the time. Notes that when she puts pills in her mouth of anything other than Cefzil she immediately becomes nauseated before she even attempts to swallow it. Has been having the staff crush her pills but not mixed in applesauce or liquid. OBJECTIVE: Temperature 97, pulse 51, respiratory rate 18, BP 118/73, sat 100% on room air.General: Patient is awake, alert. She is lying in bed. She is in no distress. Neck: Supple. CV: Regular rate. Chest: Relatively clear. Abdomen: Soft, nondistended, nontender. Positive bowel sounds. Extremities: Moves all extremities. Neurologic: No changes. ASSESSMENT: 1. Nausea. This appears to be more spitting up than actual emesis. Discussed with patient that I was unclear as to how pills could create such intense nausea before she attempts to swallow them and yet she could tolerate having a pill crushed which certainly would worsen the taste of most pills. She noted that Cefzil is the only antibiotic that she can take without having nausea and therefore we will change her IV antibiotics which certainly should not be causing the intense nausea that she is experiencing to p.o. Cefzil. Will saline lock. We will also stop her IV Dilaudid as this is unlikely to be improving her nausea. 2. Fever resolved. 3. Sepsis resolved. 4. Leukocytosis resolved. 5. Hyperbilirubinemia resolved. 6. Acute renal failure resolved. 7. Chronic lymphedema of the right lower extremity. Stable. PLAN: At this point we will change to Cefzil. Will get rid of IV medications and will follow. Hopefully home in the next 1-2 days. cc: Donell Samson MD
[2016-10-23] MEDS: CEFZIL PO SCH ×2 (12:49→20:23)
--- NOTE | 2016-10-23 16:03 | Diag Imaging Result Doc PS360 ---
EXAM: KUB ABDOMEN HISTORY: n/v TECHNIQUE: Supine abdomen COMPARISON: None. FINDINGS: No bowel obstruction. No organomegaly. No abnormal abdominal calcifications. There are pelvic phleboliths. No foreign body. IMPRESSION: Negative exam. Electronically signed by Guero Dickey 10/23/2016 4:01 PM
[2016-10-23] MEDS: ZOFRAN IV PRN (20:23)
[2016-10-23] MEDS: NORCO-7.5 PO PRN (20:24)
[2016-10-23] MEDS: LOVENOX SUBQ SCH (20:28)
[2016-10-24] MEDS: KLOR-CON PO SCH ×2 (09:42→19:59)
[2016-10-24] MEDS: CEFZIL PO SCH (09:42)
[2016-10-24] MEDS: ZOSYN 3.375 GM/NS 3.375 GM/50 ML IVPB IV SCH ×2 (12:07→19:52)
[2016-10-24] MEDS: SODIUM CHLORIDE 0.9% INJ SCH (12:07)
[2016-10-24] MEDS: PROTONIX IV SCH (12:07)
--- NOTE | 2016-10-24 13:42 | PROGRESS NOTE ---
DATE: 10/24/2016 SUBJECTIVE: The patient continues to have episodes where she is frequently spitting up. She does not have any true emesis. No blood in her spitting up. Still states that she cannot swallow pills. She had told me previously that Cefzil was the only pill that she could swallow; however, now each time she attempts to take it she began gagging. She requires the staff to crush up all of her medications, but interestingly refuses to allow them to put it in anything, then complains that she gets nauseated with medications. PHYSICAL EXAMINATION: Vital Signs: Temperature 99, pulse 90, respiratory 18, blood pressure 147/84, sat 100% on room air. General: Patient is awake, alert. She is in no respiratory distress. She is sitting up, frequently spitting into the emesis basin. HEENT: Normocephalic, atraumatic. Pupils equal, round, and reactive to light. Neck: Supple. Cardiovascular: Regular rate. Chest: Clear. Nonlabored. Abdomen: Soft, diffusely tender before palpation and after palpation. Positive bowel sounds. Neurological: There are no focal changes. ASSESSMENT: 1. Cellulitis, right lower extremity, has improved. We will restart Zosyn at this point as she is unable to keep down any other antibiotics, although her extremity is much improved and she certainly could go home if she could keep down antibiotics. 2. Chronic lymphedema since age 13. 3. Leukocytosis, resolved. 4. Fever, resolved. 5. Sepsis, resolved secondary to her right lower extremity cellulitis. 6. Acute gastritis. We attempted GI cocktail, Zofran, and proton pump inhibitors. We will change to proton pump inhibitor to IV today. We will speak with GI about transfer for an esophagogastroduodenoscopy at this point. cc: Donell Samson MD
[2016-10-24] MEDS ORDERED: MAGNESIUM SULFATE 2 GM/S.W.I. 2 GM/50 ML IVPB IV ONE (16:28)
[2016-10-24] MEDS: D5 1/2 NS 1,000 ML IV SCH (17:13)
[2016-10-24] MEDS: BENTYL IM SCH ×2 (17:14→23:45)
[2016-10-24 17:17] LABS: ALBUMIN 3.1 g/dL (3.5-5.0); CALCIUM 8.8 mg/dL (8.8-10.2); TOTAL BILIRUBIN 0.45 mg/dL (0.20-1.00); TOTAL PROTEIN 7.4 g/dL (6.3-8.3)
--- NOTE | 2016-10-24 18:15 | PROGRESS NOTE ---
DATE: 10/22/2016 SUBJECTIVE: Patient notes that she is feeling a little bit better. She is still having pain in her lower extremities but notes that her fever has disappeared. Denies any chest pain, palpitations. OBJECTIVE: Vital Signs: Reviewed. She is afebrile. T-max of over 101 was greater than 24 hours ago. HEENT: Normocephalic, atraumatic. Neck: Supple. CV: Regular rate. Chest: Relatively clear. Abdomen: Soft. Extremities: Moves all extremities. Neuro: No focal changes. Skin: Warm and dry. She is noted to have 2+ edema in her right lower and 1+ edema in left lower, right lower extremity is starting to improve. ASSESSMENT: 1. Cellulitis right lower extremity improving. 2. Fever improving. 3. Leukocytosis resolved. 4. Chronic lymphedema stable. PLAN: Will saline lock. Will stop vancomycin. Will continue to follow. Hopefully home in 1-2 days. cc: Donell Samson MD
[2016-10-24 18:57] LABS: URINE MICRO REVIEW NEEDED? NO; URINE SOURCE VOIDED
[2016-10-24 19:07] LABS: BILIRUBIN URINE NEGATIVE (NEGATIVE); BLOOD URINE NEGATIVE (NEGATIVE); COLOR YELLOW; GLUCOSE URINE NEGATIVE (NEGATIVE); LEUKOCYTES URINE MODERATE (NEGATIVE); NITRITE URINE NEGATIVE (NEGATIVE); PH URINE 6.5; PROTEIN URINE TRACE mg/dL (NEGATIVE); SP GRAVITY URINE 1.009; TURBIDITY URINE HAZY (CLEAR); UROBILINOGEN URINE NORMAL (NORMAL)
[2016-10-24 19:08] LABS: UR EPITHELIAL CELLS >10 /HPF (<10); URINE BACTERIA NEGATIVE /HPF; URINE RBC <10 /HPF (<10)
[2016-10-24] MEDS: POTASSIUM CHLORIDE 20 MEQ/SWI 20 MEQ/100 ML IVPB IV SCH ×2 (19:52→20:02)
[2016-10-24] MEDS: LOVENOX SUBQ SCH (19:59)
--- NOTE | 2016-10-24 21:34 | Diag Imaging Result Doc PS360 ---
EXAM: US GB < RUQ (LIMITED) HISTORY: N/V r/o gallbladder disease TECHNIQUE: COMPARISON: None. FINDINGS: Normal pancreas. No aneurysmal dilatation to the abdominal aorta. Normal inferior vena cava. No focal hepatic abnormality. Normal right kidney. No hydronephrosis. No ascites in the right upper quadrant. No gall stones. The gallbladder is mildly contracted with borderline mildly thickened [place]. Common bile duct measures 5 mm. IMPRESSION: Borderline mildly thickened gallbladder [place] although the gallbladder is contracted and there are no gallstones. Electronically signed by Guero Dickey 10/24/2016 9:31 PM
--- NOTE | 2016-10-24 21:40 | Diag Imaging Result Doc PS360 ---
EXAM: CT ABD/PELVIS ORAL CONTR ONLY HISTORY: abdominal pain TECHNIQUE: Dose reduction protocol COMPARISON: 06/26/2013 FINDINGS: Trace pleural fluid. Normal spleen and adrenal glands. Normal noncontrasted liver and pancreas. Borderline mild thickening to the gallbladder although there is no adjacent inflammation and there are no calcified stones. No perinephric inflammation. No renal stones. No hydronephrosis. Normal aorta. Small para-aortic lymph nodes. No bowel obstruction. Normal appendix. No abscess. The urinary bladder is mildly distended and appears normal. The uterus has been removed. No pelvic mass. IMPRESSION: 1.Hysterectomy 2.Questionable mild thickening to the gallbladder wall although there are no calcified stones or adjacent inflammation. 3.No renal stones or hydronephrosis 4.Normal appendix Electronically signed by Guero Dickey 10/24/2016 9:38 PM
--- NOTE | 2016-10-24 23:26 | CONSULTATION ---
DATE OF CONSULTATION: 10/24/2016 PRIMARY CARE PROVIDER: Donell Samson MD REFERRING PHYSICIAN: Zafar Brown MD INDICATION FOR CONSULTATION: Nausea with vomiting. HISTORY OF PRESENT ILLNESS: The patient is a 41-year-old female who presented to the hospital on 10/17/2016 for evaluation of her chronic lymphedema. She reports that her legs had become more edematous immediately prior to hospitalization. While in the hospital, she developed nausea with vomiting and significant epigastric pain. The cause of her nausea with vomiting remains unclear. We are asked to participate in her care. PAST MEDICAL HISTORY: Lymphedema. PAST SURGICAL HISTORY: Partial hysterectomy. SOCIAL HISTORY: Negative for alcohol, tobacco or recreational drug use. MEDICATION ALLERGIES: None. HOME MEDICATIONS: None. FAMILY HISTORY: Remarkable that her mother has diabetes and her sister has breast cancer. REVIEW OF SYSTEMS: Remarkable for epigastric and right upper quadrant tenderness as well as nausea with vomiting. She denies a prior cholecystectomy. She denies heartburn, indigestion, diarrhea, melena, coffee-ground emesis and hematochezia. PHYSICAL EXAMINATION: Vital Signs: Her blood pressure is 142/68, pulse is 60, respiration 18, temperature of 99.1 degrees. Of note, the patient has had a temperature maximum of 102.6 on 10/19/2016. HEENT: Negative for jaundice. Her oropharyngeal mucosa membranes are moist. Pulmonary: Lungs are clear to auscultation with normal expiratory effort. Cardiovascular: Reveals regular rate and rhythm with no gallops, murmurs, or rubs. Abdominal: Reveals normoactive bowel sounds. The abdomen is soft and nontender. Please note, the patient had just received a dose of Bentyl 20 mg IM. With the IM Bentyl she reports complete resolution of her abdominal pain. Cardiovascular: She has regular rate and rhythm. Abdominal: Reveals normoactive bowel sounds. The abdomen is soft, nontender, with no rebound or guarding (the patient had just received a dose of IM Bentyl with complete resolution of her abdominal pain. Extremities: Bilaterally are remarkable for lymphedema with the right lower extremity being larger than the left lower extremity. OBJECTIVE DATA: Remarkable for labs from 10/23/2016. Her hemoglobin was 11.9 with hematocrit of 35.3, and a white count 7.54. She had 284,000 platelets. Serum chemistry from 10/24/2016 reveals a sodium of 140, potassium 3, chloride 101, CO2 26, BUN 6, creatinine 1.2, and glucose of 122. Calcium is 8.8, total bilirubin 0.45, AST 22, ALT 26, alkaline phosphatase 65, total protein 7.4 and albumin 3.1. Her lipase is mildly elevated at 102. On urinalysis, she has moderate leukocytosis with 10-20 white blood cells per high-power field consistent with a UTI. IMPRESSION: 1. Nausea with vomiting. 2. Right upper quadrant pain. 3. Cellulitis. 4. Urinary tract infection. RECOMMENDATION: 1. The patient does have a gallbladder and notes right upper quadrant pain. I recommend checking a right upper quadrant ultrasound and a HIDA scan. 2. She has nausea with vomiting that is unexplained, it is reasonable to consider an upper gastrointestinal to assess her swallowing. Her symptoms are somewhat atypical in that she tolerates her pills, but not her food and are very atypical in that she does not have consistent nausea with vomiting and it fluctuates depending on . RECOMMENDATION: 1. From a GI perspective, I would assess her gallbladder for hepatobiliary disease. Please check a right upper quadrant ultrasound and a HIDA scan. 2. I am unable to find evidence where she has had a CT scan of the abdomen and pelvis. In light of her urinary tract infection it is possibly she may have pyelonephritis given that she has been significantly febrile this week. It is reasonable to check a CT scan of the abdomen and pelvis. 3. Depending on the results of these 2 studies, I would pursue further evaluation of the nausea with vomiting. While at bedside, she had spitting episodes, but no true nausea with vomiting. This is a very atypical. I recommend an upper GI as the initial step in her evaluation of the nausea with vomiting. She may subsequently require an EGD depending on the findings. 4. Continue Bentyl 20 mg as this has cause complete symptomatic relief of her abdominal pain. Once we clear her upper GI tract with an upper GI study and/or possible EGD, it is reasonable to transition her to oral therapy. 5. Additional recommendations to follow based on her test results. cc: MD Donell Levy MD Raphael K. Quansah, MD
[2016-10-25] MEDS: ZOSYN 3.375 GM/NS 3.375 GM/50 ML IVPB IV SCH ×4 (02:00→20:58)
[2016-10-25] MEDS: D5 1/2 NS 1,000 ML IV SCH ×2 (04:44→16:46)
[2016-10-25 06:31] LABS: HEMATOCRIT 38.5 % (37.0-47.0); MCH 31.1 PG (27-31); MCHC 33.8 g/dL (33-37); MCV 92.1 FL (81-99); MPV 10.3 FL (7.4-10.4); RBC 4.18 XMIL (4.2-5.4)
[2016-10-25 07:01] LABS: AGAP 14; BUN 5 mg/dL (8-22); CALCIUM 8.1 mg/dL (8.8-10.2); CHLORIDE 104 mmol/L (98-107); COSMO 284; POTASSIUM 3.3 mmol/L (3.5-5.1); SODIUM 143 mmol/L (136-145); TCO2 25 mmol/L (25-35)
[2016-10-25] MEDS: BENTYL IM SCH ×2 (14:36→16:46)
[2016-10-25] MEDS: KLOR-CON PO SCH ×2 (14:37→21:01)
--- NOTE | 2016-10-25 16:30 | Diag Imaging Result Doc PS360 ---
EXAM: HIDA SCAN W/ EJECTION FRACTION HISTORY: cholecystitis TECHNIQUE: Hepatobiliary scan with ejection fraction following injection of 5.4 mCi of technetium 99m Choletec COMMENT: There is activity seen in the gallbladder by at least 10 minutes. Activity is seen in the small bowel by 20 minutes. Following fatty meal administration, there is injection of 37% of the activity in the gallbladder. IMPRESSION: Normal study. Electronically signed by Ramos Weathers 10/25/2016 4:28 PM
[2016-10-25] MEDS: PROTONIX IV SCH (16:45)
[2016-10-25] MEDS: SODIUM CHLORIDE 0.9% INJ SCH (16:45)
--- NOTE | 2016-10-25 20:44 | PROGRESS NOTE ---
DATE: 10/25/2016 SUBJECTIVE: Today, Ms. Bekcman referred to be doing a little better. Ms Beckman has been admitted to [place] from 10/18/2016 till yesterday, 10/24/2016, mainly for cellulitis to the right leg; however, while she was in the hospital she has not been able to tolerate anything p.o. She is just continuously having vomiting and p.o. intolerance. So she was transferred over here for GI to evaluate. However, yesterday when I saw the patient, she continued to have significant discomfort in the abdomen with nausea and vomiting, so we did a CT scan of the abdomen and ultrasound which were positive. OBJECTIVE: Vital signs: Blood pressure is 143/74, pulse of 60, respiration is 20, temperature 98.5 degrees. General: Ms. Beckman is a 41-year-old female. She is in bed, not seemingly distressed. HEENT: Mucosa is pink and moist. Anicteric. Acyanotic. Neck: Supple. Chest: Good air entry bilaterally. No crepitations. No rhonchi. Abdomen: Soft. Minimally tender in the right upper quadrant. Bowel sounds are present. She did not appreciate any hepatosplenomegaly. CHILD CARE GIVER: Patient is awake and alert and oriented. There is no focal neurological deficit. Extremities: The right lower extremity is remarkably bigger, but there are not any erythematous changes or warmness or tenderness. I think the cellulitis has obviously improved. DIAGNOSTICS: A CT scan of the abdomen and pelvic was done yesterday which shows a questionable mild thickening to the gallbladder wall, though there are no calcified stones or adjacent inflammation. An ultrasound of the gallbladder was also done which shows borderline mild thickening of the gallbladder [place], although gallbladder is contracted and there are no stones. ASSESSMENT: 1. P.o. intolerance, etiology apparently not clear. We think it is probably related to the gallbladder findings. We will going to do a HIDA scan to see the ejection fraction. If it is remarkably abnormal, we will get Surgery to evaluate for possible cholecystectomy. 2. Chronic lymphedema of the right leg with superimposed cellulitis. This has significantly improved. 3. Sepsis on presentation secondary to skin and soft tissue infection, improved. PLAN: In general, I think Ms. Beckman is doing relatively fine. We are pending the HIDA scan to see if we need to consult surgery on not. Once she is finished with the HIDA scan, we will start her on some clear liquids to see if she is able to tolerate. The patient is being followed up by Dr. Solano as well. cc: Zafar Brown MD HIDA scan unremarkable clear liquids diet and advance as tolerated pending further recommendations from GI [facility]
[2016-10-25] MEDS: ZOFRAN IV PRN (20:59)
[2016-10-25] MEDS: LOVENOX SUBQ SCH (21:02)
[2016-10-26] MEDS: BENTYL IM SCH ×3 (00:25→12:17)
[2016-10-26] MEDS: ZOSYN 3.375 GM/NS 3.375 GM/50 ML IVPB IV SCH ×3 (03:00→16:27)
[2016-10-26] MEDS: D5 1/2 NS 1,000 ML IV SCH ×4 (03:10→17:10)
[2016-10-26] MEDS: KLOR-CON PO SCH ×2 (03:15→12:14)
[2016-10-26 07:11] LABS: HEMATOCRIT 41.4 % (37.0-47.0); HEMOGLOBIN 13.7 g/dL (12.0-16.0); MCH 30.8 PG (27-31); MCHC 33.1 g/dL (33-37); MPV 9.9 FL (7.4-10.4); RBC 4.45 XMIL (4.2-5.4)
[2016-10-26 08:13] LABS: CALCIUM 8.5 mg/dL (8.8-10.2); POTASSIUM 3.3 mmol/L (3.5-5.1)
--- NOTE | 2016-10-26 10:05 | PROGRESS NOTE ---
DATE: 10/25/2016 SUBJECTIVE: The patient states she continues to have nausea. She is having "spitting episodes" due to an inability to swallow her secretions. She denies vomiting, per se. She reports that food just "does not want to go down." She reports interval resolution of the right upper quadrant pain with Bentyl 20 mg IM. She underwent a HIDA scan today, which was normal. OBJECTIVE: Vital Signs: On exam, her blood pressure was 143/74, pulse of 60, respirations 20, temperature of 98.5 degrees. General: At bedside, she is spitting up her oral secretions. She refuses to swallow, stating that she is unable to pass food from her mouth into her esophagus. HEENT: Negative for jaundice. Her oropharyngeal cavity and posterior hypopharynx is very inflamed. There is no clear exudate, but one cannot rule out the possibility of strep. Her neck is notable for shotty adenopathy. Lungs: Clear to auscultation, with normal respiratory effort. Cardiovascular: Reveals regular rate and rhythm, with no gallops or rubs. Abdomen: Reveals normoactive bowel sounds. The abdomen is soft and nontender. Please note, she had just received Bentyl 20 mg IM. DATA: Reveals a hemoglobin of 13.0 with hematocrit of 38.5 and a white count of 7.66. She has 362,000 platelets. Sodium is 143, potassium 3.3, chloride 104, CO2 of 25, BUN 5, creatinine 1.1, with a glucose of 134, and a calcium of 8.2. RECOMMENDATIONS: 1. Because of her inability to swallow, I will obtain a modified barium swallow in the morning. This will help us to determine if she needs any intervention, such as dilation of the upper esophageal sphincter for possible cricopharyngeal achalasia. 2. Her potassium is 3.3. She will need potassium replacement prior to endoscopy. 3. She is currently receiving Lovenox for deep vein thrombosis prophylaxis. I will discontinue this in light of our plan to do an esophagogastroduodenoscopy with possible dilation, depending on findings on modified barium swallow. Please place SCDs or ANA MARIA hose for deep vein thrombosis prophylaxis. 4. Continue Protonix 40 mg IV q.24 hours. 5. Continue Bentyl 20 mg IM q.8 hours. Once we are able to clear her GI tract, I anticipate transitioning her to an oral diet. 6. Wound cultures were sent for Streptococcus, as she has a 2-year-old grandchild that she cares for on a regular basis. 7. Additional recommendations to follow based on her clinical course. cc: MD Donell Levy MD Raphael K. Quansah, MD
[2016-10-26] MEDS: SODIUM CHLORIDE 0.9% INJ SCH (12:51)
[2016-10-26] MEDS: PROTONIX IV SCH (12:51)
--- NOTE | 2016-10-26 15:10 | Diag Imaging Result Doc PS360 ---
EXAM: BA SWALLOW W/VIDEO SPEECH THER INDICATION: dysphagia, spitting of food/liquids TECHNIQUE: COMPARISON: None. FINDINGS: There is grossly normal bolus propagation upon swallowing thin liquid and puree consistency barium. No aspiration or penetration was appreciated. There is no evidence of cricopharyngeus hypertrophy. Limited views of the distal esophagus are unremarkable as well. IMPRESSION: Grossly normal modified barium swallow. Please see speech pathology report for full details. Electronically signed by Skyler Wong 10/26/2016 3:08 PM
[2016-10-26] MEDS: POTASSIUM CHLORIDE 20 MEQ/SWI 20 MEQ/100 ML IVPB IV SCH (20:10)
[2016-10-26] MEDS: REGLAN IV SCH (20:25)
--- NOTE | 2016-10-26 21:40 | PROGRESS NOTE ---
DATE: 10/26/2016 SUBJECTIVE: The patient still has protracted nausea and vomiting. She really cannot get a handle on that very well unfortunately. She has not a profound amount of emesis, but it does not look like she is tolerating very much today. She had a modified barium which was really unremarkable. However, still protracted nausea, vomiting. OBJECTIVE: Vital signs: Blood pressure 131/76, heart rate is 50, respiratory rate 16, temperature 98.3 degrees, 100% saturation on room air. Cardiovascular: Regular rate and rhythm. Pulmonary: Bilateral breath sounds. Clear to auscultation. GI: Soft, nontender, nondistended. Bowel sounds are positive. Extremities: No clubbing or cyanosis. Lymphatics: No peripheral edema. Neurological: Nonfocal. Skin: She does have nonpitting edema on the right lower extremity, but no erythema. PROBLEMS: 1. Right lower extremity cellulitis. Clinically, she has improved on Zosyn. This will be day 3 of Zosyn and she seems to be doing well. Apparently she did not tolerate. 2. Hypokalemia. Supplement and follow. 3. Intractable nausea, vomiting, I will start Reglan. She is due for tomorrow. Her modified barium was negative and her HIDA scan was unremarkable. She may need a gastric emptying scan. cc: Artis Omalley MD
[2016-10-27] MEDS: ZOSYN 3.375 GM/NS 3.375 GM/50 ML IVPB IV SCH ×4 (00:51→23:21)
[2016-10-27] MEDS: REGLAN IV SCH ×3 (00:51→18:45)
[2016-10-27] MEDS: POTASSIUM CHLORIDE 20 MEQ/SWI 20 MEQ/100 ML IVPB IV SCH (02:51)
--- NOTE | 2016-10-27 04:10 | PROGRESS NOTE ---
DATE: 10/26/2016 SUBJECTIVE: The patient continues to have nausea with vomiting. Her modified barium swallow was normal. However, post swallow study, the patient had large volume emesis of the contrast. IMPRESSION AND PLAN: Our plan is to perform an EGD in the morning for further evaluation. Her clinical exam remains unchanged. Her labs are only remarkable for hypokalemia with a potassium of 3.3. She has received potassium chloride IV with repeat labs pending. cc: MD Donell Levy MD Alexis R. Penot, MD
[2016-10-27] MEDS: D5 1/2 NS 1,000 ML IV SCH (05:29)
[2016-10-27 06:59] LABS: HEMATOCRIT 39.4 % (37.0-47.0); HEMOGLOBIN 13.1 g/dL (12.0-16.0); MCH 30.8 PG (27-31); MCHC 33.2 g/dL (33-37); MCV 92.7 FL (81-99); MPV 10.2 FL (7.4-10.4); RBC 4.25 XMIL (4.2-5.4)
[2016-10-27 07:31] LABS: AGAP 13; BUN 3 mg/dL (8-22); CALCIUM 8.2 mg/dL (8.8-10.2); CHLORIDE 105 mmol/L (98-107); COSMO 284; POTASSIUM 3.8 mmol/L (3.5-5.1); SODIUM 144 mmol/L (136-145); TCO2 26 mmol/L (25-35)
[2016-10-27] MEDS ORDERED: VERSED ONE (08:30)
[2016-10-27] MEDS ORDERED: DIPRIVAN 1% ONE (08:30)
[2016-10-27] MEDS ORDERED: XYLOCAINE-MPF 2% ONE (08:35)
--- NOTE | 2016-10-27 15:35 | Diag Imaging Result Doc PS360 ---
EXAM: GASTRIC EMPTYING HISTORY: n/v, negative EGD TECHNIQUE: 540 uCi of sulfur colloid ingested with an egg biscuit COMPARISON: None. FINDINGS: Imaging for two hours performed. The T1/2 is calculated to be two hours and 38 minutes. This falls above the normal range. IMPRESSION: Mild delayed gastric emptying. Electronically signed by Guero Dickey 10/27/2016 3:33 PM
[2016-10-27] MEDS: PROTONIX IV SCH (15:47)
--- NOTE | 2016-10-27 22:09 | PROGRESS NOTE ---
DATE: 10/27/2016 SUBJECTIVE: Patient has no focal complaints. OBJECTIVE: Vital signs: Blood pressure 129/71, heart rate 54, respiratory 16, temperature 97.8 degrees. Cardiovascular: Regular rate and rhythm. Pulmonary: Bilateral breath sounds. Clear to auscultation. GI: Soft, nontender, nondistended. Bowel sounds are positive. LABORATORY DATA: Normal CBC. Normal basic. PROBLEM LIST: 1. Intractable nausea, vomiting. Esophagogastroduodenoscopy was performed and I think was not that impressive, but I do not have a report yet. Gastric emptying study was performed. Awaiting results. 2. Right lower extremity cellulitis. We will continue antibiotics. She is on day 4 of Zosyn. 3. Hypokalemia. We will supplement and follow. DISPOSITION: We have got to wait for her improvement nothing per oral status and then she to go home hopefully in the next 24 hours. cc: Artis Omalley MD
[2016-10-28] MEDS: REGLAN IV SCH ×2 (00:34→09:45)
[2016-10-28] MEDS: D5 1/2 NS 1,000 ML IV SCH ×3 (00:34→15:53)
[2016-10-28] MEDS: ZOSYN 3.375 GM/NS 3.375 GM/50 ML IVPB IV SCH ×4 (04:59→22:30)
[2016-10-28 07:00] LABS: HEMATOCRIT 39.6 % (37.0-47.0); HEMOGLOBIN 13.3 g/dL (12.0-16.0); MCH 31.1 PG (27-31); MCHC 33.6 g/dL (33-37); MCV 92.7 FL (81-99); MPV 10.2 FL (7.4-10.4); RBC 4.27 XMIL (4.2-5.4)
[2016-10-28 07:22] LABS: AGAP 12; BUN 5 mg/dL (8-22); CALCIUM 8.6 mg/dL (8.8-10.2); CHLORIDE 101 mmol/L (98-107); COSMO 273; MAGNESIUM 1.8 mg/dL (1.5-2.7); POTASSIUM 3.2 mmol/L (3.5-5.1); SODIUM 138 mmol/L (136-145); TCO2 25 mmol/L (25-35)
--- NOTE | 2016-10-28 07:29 | OPERATIVE NOTE ---
PROCEDURE DATE: 10/27/2016 REFERRING PHYSICIAN: Artis Omalley MD. PRIMARY CARE PROVIDER: Donell Samson MD. INDICATION FOR PROCEDURE: 1. Nausea with vomiting. 2. Epigastric pain. 3. Intermittent dysphagia. PROCEDURE PERFORMED: Esophagogastroduodenoscopy with biopsy. CONSENT: Informed consent was obtained from the patient prior to the procedure. The risks, benefits, and alternatives were discussed. MEDICATIONS: The patient received monitored anesthesia care. PERFORMING PHYSICIAN: Kriss Solano MD. ASSISTANTS: 1. ST. Erik 2. Rodney Bonilla RN. 3. Rizwana Hartley CRNA. 4. Mo Huerta MD (anesthesia). COMPLICATIONS: There were no complications. ESTIMATED BLOOD LOSS: Less than 1 mL. SPECIMENS REMOVED: 1. Duodenal biopsy. 2. Gastric biopsy. FINDINGS: After sedation was achieved, the upper endoscope was inserted to the 2nd portion of the duodenum. The hypopharynx appeared normal. The tubular esophagus appeared normal. The GE junction was measured at 40 cm from the incisors. There were no esophageal varices or Son's esophagus noted. There was a hiatal hernia from 40-45 cm. In the gastric lumen, there was minimal gastritis in the antrum and body. The fundus appeared normal. It should be noted that there was significant decreased motility during the exam. The pylorus appeared normal. In the duodenum, there was a superficial ulceration with a whitish base suggestive of an early duodenal ulcer. After biopsies were taken, the lumen was decompressed and the scope was removed without incident. IMPRESSION: 1. Hiatal hernia. 2. Mild gastritis. 3. Decreased contractions in the gastric lumen, suggestive of possible gastroparesis. 4. Duodenitis. 5. Superficial duodenal ulcer. RECOMMENDATION: 1. Await biopsy results. 2. Continue Protonix as you are doing. 3. We will obtain a gastric emptying study today. If that is positive, I would place the patient on a gastroparesis diet. I would also consider either oral erythromycin or oral Reglan, based on insurance coverage. 4. If the emptying study is normal, I would consider CART ATTENDANT causes of the nausea with vomiting. 5. Additional recommendations to follow based on her clinical course and the results of her evaluation. cc: MD Artis Levy MD Gregory S. Cheatham MD
[2016-10-28] MEDS: PROTONIX IV SCH (11:25)
--- NOTE | 2016-10-28 17:08 | PROGRESS NOTE ---
DATE: 10/28/2016 SUBJECTIVE: The patient has no focal complaints. OBJECTIVE: Blood pressure 131/74, heart rate 53, respiratory 18, temperature 97.8 degrees.Cardiovascular: Regular rate and rhythm. Pulmonary: Bilateral breath sounds. Clear to auscultation. GI: Soft, nontender, nondistended. Bowel sounds are positive. Extremities: No clubbing or cyanosis. Lymphatics: No peripheral edema. Neurological: Nonfocal. LABORATORY DATA: Potassium 3.2. White count is normal. Hemoglobin and hematocrit is 13 and 39. Urine looks okay. PROBLEM LIST: 1. Intractable nausea, vomiting, possibly cyclic syndrome. She does have some gastroparesis. I would discharge her on some low-dose Reglan. I am going to have to switch her to p.o. Reglan today and see how she does. If she is stable, I anticipate she could go home tomorrow. Dr. Solano will check on her a little later and decide about going home at that point. Disposition pending her gastrointestinal status. 2. Right lower extremity cellulitis. Appears to be resolved. She is on Zosyn day 5. I think she probably needs another 5 days of antibiotics. Would consider Augmentin. We will continue to follow. cc: Artis Omalley MD
--- NOTE | 2016-10-28 18:23 | PROGRESS NOTE ---
DATE: 10/28/2016 SUBJECTIVE: The patient states that she is feeling better today. She is spitting less. She has been placed on Reglan by the primary service. However, she is very concerned about the potential for extrapyramidal symptoms and nerve damage. We reviewed the mechanism of gastroparesis and its treatment along with the potential side effects. One option to consider is begin with a gastroparesis diet. I would reduce her dose of Reglan to 2.5 mg p.o. a.c. and at bedtime. I would add papaya extract with each meal to help with digestion and re-evaluate as an outpatient. I would place her on once a day dosing of oral PPI such as omeprazole 40 mg daily. We will monitor her as an outpatient. If her Reglan needs an interval dose adjustment we can do so. I would continue therapy for 12 weeks and then stop for reassessment given its high risk side-effect profile. From a GI perspective, it is reasonable to discharge the patient to home tomorrow if she is tolerating her diet. I have written for a GI soft diet so that we are able to ensure that she is tolerating her diet prior to discharge. We will have the patient return to clinic in 2-3 weeks to assess interval progress. cc: Kriss Solano MD
[2016-10-29] MEDS: ZOSYN 3.375 GM/NS 3.375 GM/50 ML IVPB IV SCH ×2 (04:06→10:10)
[2016-10-29 06:24] LABS: AGAP 13; BUN 5 mg/dL (8-22); CALCIUM 8.9 mg/dL (8.8-10.2); CHLORIDE 101 mmol/L (98-107); COSMO 277; POTASSIUM 3.2 mmol/L (3.5-5.1); SODIUM 140 mmol/L (136-145); TCO2 26 mmol/L (25-35)
[2016-10-29] MEDS: REGLAN PO SCH ×2 (06:31→10:41)
[2016-10-29] MEDS: SODIUM CHLORIDE 0.9% INJ SCH (10:52)
[2016-10-29] MEDS: PROTONIX IV SCH (10:52)
[2016-10-29 13:53] VITALS: BP 124/65
--- NOTE | 2016-10-29 15:09 | DISCHARGE SUMMARY ---
ADMISSION DATE: 10/17/2016 DISCHARGE DATE: 10/29/2016 This is a 41-year-old, female who came in. She has lymphedema which is chronic from the age of 13, and she had some cellulitis, history of chronic lymph edema mentioned, and multiple bouts of cellulitis in the past, bilateral lower extremity edema with right greater than the left. She states that the left remains somewhat normal but the right is always larger, edema noted to her knees, having redness and warmth from just below her right knee to her foot, tender to touch. So admitted with chronic lymph edema and cellulitis, put on IV vancomycin and Zosyn. She has chronic lymphedema since age of 13 and it looks as if she had some leukocytosis on presentation. Ankle and foot x-ray on 10/19/2016, there is pedal edema, no acute bony disease in the ankle, and in the foot unremarkable as well except for edema. She had lower venous extremity study done on 10/20/2016, no evidence of deep venous thrombosis in either lower extremity. She had CT of abdomen and pelvis done on 10/24/2016, and she is status post hysterectomy, questionable mild thickening of the gallbladder although there are no calcified nodes or adjacent inflammation. No renal stones. Normal appendix. So, unremarkable. She had an abdominal ultrasound done on 10/24/2016 and borderline mild thickening gallbladder wall, the gallbladder is contracted, and there were no gallstones. She had a nuclear fraction HIDA scan which was a normal study as well. There is activity seen in the gallbladder by at least 10 minutes, activity seen in the small bowel at 20 minutes. Following fatty meal administration there was ejection fraction of 37% activity from the gallbladder. She had a modified barium swallow on 10/26/2016, grossly normal modified barium swallow. She had a gastric emptying test done on 10/27/2016, mild delayed gastric emptying. Dr. Solano evaluated her on 10/27/2016, had EGD because of nausea and vomiting and epigastric pain, intermittent dysphagia. Found hiatal hernia, mild gastritis, decreased contractions of the gastric lumen suggestive of possible gastroparesis and duodenitis, superficial duodenal ulcer. They did do some biopsies, planned to continue the Protonix. Her foot improved, tenderness went down, and felt she could go home on 10/29/2016. She is to follow up with Dr. Russ. I will continue her Keflex for another 7 days. cc: Lonnie Parekh MD
== END 2016-10-29 16:55 | disposition home or self-care (01) ==
LOC: P.MEDSURG 17:25 → P.ED 17:25 → SUATTDRO 19:11 → OBSVTOIN 19:11 → SUPCPDRO 19:11 → P.MEDSURG 21:05 → 3N 10-24 14:51
PROVIDERS: ATTEND Emergency Medicine